=== PATIENT | female | born 1995 | race Caucasian/White ===

== ENCOUNTER 2019-06-01 11:20 | Inpatient (IN) | payer OTHER ==
[~2019-06-01] VITALS: Ht 165.1 cm; Wt 92.1 kg
[2019-06-01] MEDS ORDERED: OXYTOCIN/0.9 % SODIUM CHLORIDE 1,000 ML IV SCH (11:54)
[2019-06-01] MEDS ORDERED: TERBUTALINE SULFATE 1 MG/ML VIAL SUBCUT ONE (12:00)
[2019-06-01] MEDS ORDERED: DINOPROSTONE 10 MG SUPP VG ONE (12:00)
[2019-06-01 12:48] LABS: BASOPHILS % (AUTO) 0.4 % (0.0-2.0); EOSINOPHILS # (AUTO) 0.1 K/uL (0.0-0.4); HEMATOCRIT 38.4 % (36-48); HEMOGLOBIN 12.6 g/dL (12.0-16.0); LYMPHOCYTES # (AUTO) 1.8 K/uL (1.0-5.5); LYMPHOCYTES % (AUTO) 24.8 % (20.5-51.5); MEAN CORPUSCULAR HEMOGLOBIN 29 pg (27-31); MEAN CORPUSCULAR HGB CONC 33 % (32-36); MEAN CORPUSCULAR VOLUME 89 fL (79.0-98.0); MONOCYTES # (AUTO) 0.5 K/uL (0.0-1.0); MONOCYTES % (AUTO) 6.8 % (1.7-9.3); NEUTROPHILS # (AUTO) 4.8 K/uL (1.8-7.7); PLATELET COUNT (AUTO) 279 K/uL (130-430); RED BLOOD CELL COUNT(AUTO) 4.33 MIL/uL (4.2-6.2); RED CELL DISTRIBUTION WIDTH 14.1 % (9.0-15.0); WHITE BLOOD COUNT (AUTO) 7.1 K/uL (4.8-10.8)
[2019-06-01 20:12] VITALS: BP_SYST 132
[2019-06-01] MEDS: LR 1,000 ML IV SCH ×2 (20:36→22:26)
[2019-06-01] MEDS ORDERED: LR 500 ML IV ONE (21:25)
[2019-06-01] MEDS ORDERED: FENT2mCg/mL-ROPIVA0.2%/NS EPID 200 ML EP SCH (21:30)
[2019-06-01] MEDS ORDERED: fentaNYL CITRATE/PF 100 MCG/2 ML AMP ONE (21:31)
[2019-06-02] MEDS: LR 1,000 ML IV SCH (06:11)
[2019-06-02] MEDS ORDERED: OXYTOCIN/0.9 % SODIUM CHLORIDE 1,000 ML IV ONE (07:25)
[2019-06-02] MEDS ORDERED: OXYTOCIN/0.9 % SODIUM CHLORIDE 1,000 ML IV SCH (07:25)
[2019-06-02] MEDS ORDERED: METHYLERGONOVINE MALEATE 0.2 MG TABLET PO PRN (07:30)
[2019-06-02] MEDS ORDERED: DERMOPLAST SPRAY TP PRN (07:30)
[2019-06-02] MEDS ORDERED: SENNOSIDES/DOCUSATE SODIUM 1 TAB TABLET(SENOKOT-S) PO PRN (07:30)
[2019-06-02] MEDS ORDERED: WITCH HAZEL LEAF 1 MED.PAD MED.PAD TP PRN (07:30)
[2019-06-02] MEDS ORDERED: DOCUSATE SODIUM 100 MG CAPSULE PO PRN (07:30)
[2019-06-02] MEDS ORDERED: OXYCODONE/ACETAMINOPHEN 5-325 TABLET PO PRN (07:30)
[2019-06-02] MEDS ORDERED: HYDROCORTISONE 0.5%, 28.35 GM TOPICAL CREAM TP PRN (07:30)
[2019-06-02] MEDS ORDERED: LANOLIN 7 GM OINT. TP PRN (07:30)
[2019-06-02] MEDS ORDERED: ANUSOL 1 EA SUPP.RECT (PREPARATION H) RC PRN (07:30)
[2019-06-02] MEDS: IBUPROFEN 600 MG TABLET PO SCH ×2 (12:08→17:56)
[2019-06-02] MEDS: OXYCODONE/ACETAMINOPHEN 5-325 TABLET PO PRN (17:57)
[2019-06-02] MEDS ORDERED: TEMAZEPAM 15 MG CAPSULE PO PRN (21:00)
[2019-06-03] MEDS: IBUPROFEN 600 MG TABLET PO SCH ×3 (00:37→12:05)
[2019-06-03 06:46] LABS: HEMATOCRIT 33.5 % (36-48); HEMOGLOBIN 11.2 g/dL (12.0-16.0)
[2019-06-03] MEDS: OXYCODONE/ACETAMINOPHEN 5-325 TABLET PO PRN (08:32)
== END 2019-06-03 12:30 | disposition home or self-care (01) | DRG 560 ==
LOC: SPU 11:20
PROVIDERS: ADMIT Obstetrics & Gynecology; ATTEND Obstetrics & Gynecology
PROC: 10E0XZZ Delivery of Products of Conception, External Approach (ICD-10-PCS; principal; 2019-06-02)
PROC: 3E0R3BZ Introduction of Anesthetic Agent into Spinal Canal, Percutaneous Approach (ICD-10-PCS; 2019-06-02)
PROC: 00HU33Z Insertion of Infusion Device into Spinal Canal, Percutaneous Approach (ICD-10-PCS; 2019-06-02)
PROC: 3E0P7VZ Introduction of Hormone into Female Reproductive, Via Natural or Artificial Opening (ICD-10-PCS; 2019-06-02)
DX: O80 Encounter for full-term uncomplicated delivery (principal); Z37.0 Single live birth; Z3A.39 39 weeks gestation of pregnancy
CPT/HCPCS: 36415; 81002-TC; 85018-TC; 85025; 86592; 86886; 86900; 86901; 94760; J2590; J3010; J7120

== ENCOUNTER 2021-12-10 23:53 | Inpatient (IN) | payer OTHER ==
[~2021-12-10] VITALS: Ht 162.6 cm; Wt 93.0 kg
[2021-12-11] MEDS ORDERED: OXYTOCIN/0.9 % SODIUM CHLORIDE 1,000 ML IV SCH (01:45)
[2021-12-11] MEDS ORDERED: NALBUPHINE HCL 10 MG/ML AMP IM PRN (01:45)
[2021-12-11] MEDS ORDERED: NALBUPHINE HCL 10 MG/ML AMP IVP PRN (01:45)
[2021-12-11] MEDS ORDERED: TERBUTALINE SULFATE 1 MG/ML VIAL SUBCUT ONE (01:45)
[2021-12-11] MEDS ORDERED: AMPICILLIN SODIUM 2 GM in NS 100 ML IV ONE (02:00)
[2021-12-11] MEDS: LR 1,000 ML IV SCH ×2 (02:37→11:46)
[2021-12-11 02:47] VITALS: BP_SYST 125
[2021-12-11] MEDS ORDERED: AMPICILLIN SODIUM 2 GM VIAL ONE (02:58)
[2021-12-11 03:09] LABS: BASOPHILS % (AUTO) 0.3 % (0.0-2.0); EOSINOPHILS # (AUTO) 0.2 K/uL (0.0-0.4); EOSINOPHILS % (AUTO) 1.5 % (0.0-4.0); HEMATOCRIT 36.2 % (36-48); LYMPHOCYTES # (AUTO) 2.8 K/uL (1.0-5.5); LYMPHOCYTES % (AUTO) 27.2 % (20.5-51.5); MEAN CORPUSCULAR VOLUME 85 fL (79.0-98.0); MONOCYTES # (AUTO) 0.6 K/uL (0.0-1.0); MONOCYTES % (AUTO) 6.1 % (1.7-9.3); NEUTROPHILS # (AUTO) 6.6 K/uL (1.8-7.7); NEUTROPHILS % (AUTO) 64.9 % (40.0-70.0); PLATELET COUNT (AUTO) 271 K/uL (130-430); RED BLOOD CELL COUNT(AUTO) 4.25 MIL/uL (4.2-6.2); RED CELL DISTRIBUTION WIDTH 14.3 % (9.0-15.0); WHITE BLOOD COUNT (AUTO) 10.1 K/uL (4.8-10.8)
[2021-12-11] MEDS ORDERED: AMPICILLIN SODIUM 1 GM VIAL ONE ×2 (06:31→06:32)
[2021-12-11] MEDS: AMPICILLIN SODIUM 1 GM in NS 50 ML IV SCH ×3 (06:47→15:15)
[2021-12-11] MEDS ORDERED: fentaNYL CITRATE/PF 100 MCG/2 ML AMP ONE (07:55)
[2021-12-11] MEDS ORDERED: ROPIVACAINE HCL/PF 0.2% 200 ML ONE (07:55)
[2021-12-11] MEDS ORDERED: FENT2mCg/mL-ROPIVA0.2%/NS EPID 200 ML EP SCH (08:00)
[2021-12-11] MEDS ORDERED: DIPHENHYDRAMINE INJ 50 MG/ML VIAL IVP PRN (08:00)
[2021-12-11] MEDS ORDERED: ONDANSETRON HCL 4 MG/2 ML VIAL IVP PRN (08:00)
[2021-12-11] MEDS ORDERED: LIDOCAINE PF 1% 30ML(POUR BTL) INJ ONE (16:06)
[2021-12-11] MEDS ORDERED: NALOXONE HCL 0.4 MG/ML AMP (NARCAN) ONE (16:06)
[2021-12-11] MEDS ORDERED: LIGHT MINERAL OIL 10 ML VIAL MC ONE (16:06)
[2021-12-11] MEDS ORDERED: HYDROcodone/ACETAMIN 5-325 MG TAB (NORCO/ VICODIN) PO PRN (17:00)
[2021-12-11] MEDS: OXYCODONE/ACETAMINOPHEN 5-325 TABLET PO PRN (19:49)
[2021-12-11] MEDS ORDERED: HEMABATE 250MCG/ML VIAL AMP IM ONE (20:13)
[2021-12-11] MEDS ORDERED: METHYLERGONOVINE MALEATE 0.2 MG/ML AMP ONE ×2 (20:13→22:05)
[2021-12-11] MEDS ORDERED: MISOPROSTOL 100 MCG TABLET (CYTOTEC) ONE (20:29)
[2021-12-11] MEDS ORDERED: MISOPROSTOL 25 MCG (0.025 MG) *QUARTER TABLET VG ONE (20:30)
[2021-12-11] MEDS ORDERED: TRANEXAMIC ACID 1,000 MG/10 ML VIAL IV ONE (20:45)
[2021-12-11] MEDS ORDERED: OXYTOCIN 30 UNIT in LR 1,000 ML IV ONE (20:45)
[2021-12-11] MEDS ORDERED: OXYTOCIN 10 UNIT/ML VIAL ONE ×2 (20:46→21:23)
[2021-12-11] MEDS: IBUPROFEN 600 MG TABLET PO SCH (21:00)
[2021-12-11 21:20] LABS: MEAN CORPUSCULAR VOLUME 85 fL (79.0-98.0); PLATELET COUNT (AUTO) 245 K/uL (130-430); RED BLOOD CELL COUNT(AUTO) 3.52 MIL/uL (4.2-6.2); RED CELL DISTRIBUTION WIDTH 14.3 % (9.0-15.0); WHITE BLOOD COUNT (AUTO) 14.3 K/uL (4.8-10.8)
[2021-12-11 21:39] LABS: BAND % (MANUAL) 2 % (0-6); BASOPHILS % (MANUAL) 0 % (0-2); EOSINOPHILS % (MANUAL) 0 % (0-7); LYMPHOCYTES % (MANUAL) 9 % (20-46); METAMYELOCYTES % 2 % (0-0); MONOCYTES % (MANUAL) 2 % (0-11)
[2021-12-11] MEDS ORDERED: TRANEXAMIC ACID 1,000 MG/10 ML VIAL ONE (22:08)
[2021-12-12] MEDS: IBUPROFEN 600 MG TABLET PO SCH ×3 (02:25→13:41)
[2021-12-12] MEDS: OXYCODONE/ACETAMINOPHEN 5-325 TABLET PO PRN ×4 (02:29→23:17)
[2021-12-12] MEDS ORDERED: METHYLERGONOVINE MALEATE 0.2 MG/ML AMP IM PRN (07:30)
[2021-12-12 14:07] LABS: BASOPHILS % (AUTO) 0.2 % (0.0-2.0); EOSINOPHILS # (AUTO) 0.1 K/uL (0.0-0.4); EOSINOPHILS % (AUTO) 0.8 % (0.0-4.0); HEMATOCRIT 27.1 % (36-48); LYMPHOCYTES % (AUTO) 22.9 % (20.5-51.5); MEAN CORPUSCULAR VOLUME 87 fL (79.0-98.0); MONOCYTES % (AUTO) 7.4 % (1.7-9.3); NEUTROPHILS % (AUTO) 68.7 % (40.0-70.0); PLATELET COUNT (AUTO) 200 K/uL (130-430); RED BLOOD CELL COUNT(AUTO) 3.11 MIL/uL (4.2-6.2); RED CELL DISTRIBUTION WIDTH 14.4 % (9.0-15.0); WHITE BLOOD COUNT (AUTO) 13.1 K/uL (4.8-10.8)
[2021-12-13] MEDS: OXYCODONE/ACETAMINOPHEN 5-325 TABLET PO PRN ×2 (08:57→15:39)
[2021-12-13] MEDS ORDERED: DOCUSATE SODIUM 100 MG CAPSULE PO SCH (10:00)
[2021-12-13] MEDS ORDERED: ROPIVACAINE HCL/PF 0.2% 0 ML ONE (10:32)
[2021-12-13] MEDS ORDERED: fentaNYL CITRATE/PF 100 MCG/2 ML AMP ONE (10:32)
[2021-12-13] MEDS ORDERED: LIDOCAINE PF 1% 30ML(POUR BTL) INJ ONE (11:19)
[2021-12-13] MEDS ORDERED: LIGHT MINERAL OIL 10 ML VIAL MC ONE (11:19)
[2021-12-13] MEDS ORDERED: NALOXONE HCL 0.4 MG/ML AMP (NARCAN) ONE (11:19)
[2021-12-13] MEDS: IBUPROFEN 600 MG TABLET PO SCH (15:39)
== END 2021-12-13 19:10 | disposition home or self-care (01) | DRG 560 ==
LOC: OBSVTOIN 23:53 → SPU 23:53
PROVIDERS: ADMIT Obstetrics & Gynecology; ATTEND Obstetrics & Gynecology
PROC: 10E0XZZ Delivery of Products of Conception, External Approach (ICD-10-PCS; principal; 2021-12-11)
PROC: 3E0R3BZ Introduction of Anesthetic Agent into Spinal Canal, Percutaneous Approach (ICD-10-PCS; 2021-12-11)
PROC: 00HU33Z Insertion of Infusion Device into Spinal Canal, Percutaneous Approach (ICD-10-PCS; 2021-12-11)
PROC: 30233N1 Transfusion of Nonautologous Red Blood Cells into Peripheral Vein, Percutaneous Approach (ICD-10-PCS; 2021-12-11)
DX: O99.824 Streptococcus B carrier state complicating childbirth (principal); Z37.0 Single live birth; O69.81X0 Labor and delivery complicated by cord around neck, without compression, not applicable or unspecified; Z3A.39 39 weeks gestation of pregnancy; Z20.822 Contact with and (suspected) exposure to COVID-19
CPT/HCPCS: 36415; 85007; 85025; 85027; 86592; 86886; 86900; 86901; 86920; J0290; J2001; J2210; J2310; J2590; J3010; J3490; J7120; P9021